=== PATIENT | female | born 1975 | race Caucasian/White ===

== ENCOUNTER → 2020-02-03 19:01 | Outpatient (ROUT) | payer OTHER, MEDICAID, SELFPAY ==
[2020-02-03 20:04] LABS: Add Manual Diff / Slide Review NO; Basophils Absolute Auto 0 /uL (0-100); Basophils Percent Auto 0.5 % (0-2); Eosinophils Absolute Auto 300 /uL (0-450); Eosinophils Percent Auto 3.3 % (2-4); Hematocrit 40.2 % (36-46); Hemoglobin 13.2 g/dL (12.0-16.0); Lymphocytes Absolute Auto 2500 /uL (1100-4500); Lymphocytes Percent Auto 29.3 % (25-40); Mean Corpuscular HGB Conc 32.7 % (30-36); Mean Corpuscular Hemoglobin 29.2 PG (26-34); Mean Corpuscular Volume 89.2 fL (80-100); Monocytes Absolute Auto 600 /uL (0-900); Neutrophils Absolute Auto 5100 /uL (1500-7000); Neutrophils Percent Auto 59.9 % (50-75); Platelet Count 217 X10^3/uL (150-400); Red Blood Cell Count 4.51 X10^6/uL (4.0-5.2); Red Cell Distribution Width 13.7 % (11.6-14.8); White Blood Cell Count 8.5 X10^3/uL (4.5-11.0)
[2020-02-03 20:17] LABS: Aspartate Aminotransferase 31 IU/L (14-36); BUN Creatinine Ratio 18.6 (6-22); Blood Urea Nitrogen 18 mg/dL (7-17); Calcium 10.1 mg/dL (8.4-10.2); Carbon Dioxide 32 mmol/L (22-32); Chloride 102 mmol/L (98-107); Cholesterol 203 mg/dL (140-199); Estimated Glomerular Filt Rate > 60.0 mL/min (>60); Glucose 111 mg/dL (70-100); HDL Cholesterol 40 mg/dL (40-60); HEMOLYSIS < 15 (0-50); LDL Cholesterol Calculated 117 mg/dL (<100); Potassium 4.4 mmol/L (3.4-5.1); Sodium 138 mmol/L (137-145); Triglycerides 230 mg/dL (35-150)
[2020-02-03 20:51] LABS: TSH w/ Reflex to FT4 1.88 uIU/mL (0.47-4.68)
== END ==
PROVIDERS: PCP Internal Medicine; Visit Provider Internal Medicine
DX: E03.9 Hypothyroidism, unspecified (principal); I10 Essential (primary) hypertension; E78.2 Mixed hyperlipidemia
CPT/HCPCS: 80048; 80061; 84443; 84450; 85025

== ENCOUNTER → 2021-11-03 08:38 | Outpatient (CLI) | payer BC, OTHER, SELFPAY ==
[2021-11-03 09:40] LABS: Hematocrit 39.4 % (36-46); Hemoglobin 13.2 g/dL (12.0-16.0); Mean Corpuscular HGB Conc 33.6 % (30-36); Mean Corpuscular Volume 89.3 fL (80-100); Platelet Count 267 X10^3/uL (150-400); Red Blood Cell Count 4.41 X10^6/uL (4.0-5.2); Red Cell Distribution Width 13.7 % (11.6-14.8); White Blood Cell Count 8.5 X10^3/uL (4.5-11.0)
[2021-11-03 09:46] LABS: Appearance Urine UA CLEAR; Bilirubin Urine UA NEGATIVE (NEGATIVE); Color Urine UA YELLOW; Glucose Urine UA NEGATIVE (Negative); Ketones Urine UA NEGATIVE (NEGATIVE); Leukocyte Esterase Urine UA NEGATIVE (NEGATIVE); Nitrite Urine UA NEGATIVE (Negative); Occult Blood Urine UA NEGATIVE (Negative); Protein Urine UA NEGATIVE (Negative); Specific Gravity Urine UA 1.025 (1.000-1.035); Urobilinogen Urine UA 0.2 E.U./dL (0.2)
[2021-11-03 10:11] LABS: pH Urine UA 5.5 (4.5-8.0)
[2021-11-03 10:17] LABS: Hemoglobin A1C% w Est Avg Glu 5.7 % (4.0-6.0)
[2021-11-03 10:18] LABS: Bacteria Urine None Seen; Culture Indicated Urine Cult Not Indicated; Mucus Urine 2+ (Negative); RBC Urine None Seen (0-5/HPF); WBC Urine None Seen (0-5/HPF)
[2021-11-03 10:21] LABS: Creatinine Urine Random 233.8 mg/dL
[2021-11-03 10:23] LABS: Microalbumi Creatinin Ratio Ur 12.4 ug/mg CR (<30); Microalbumin Urine Random 2.9 mg/dL (0-1.6)
[2021-11-03 10:26] LABS: Alanine Aminotransferase 24 IU/L (<35); Albumin Globulin Ratio 1.4 (1.0-2.8); Alkaline Phosphatase 48 U/L (38-126); Aspartate Aminotransferase 27 IU/L (14-36); BUN Creatinine Ratio 10.3 (6-22); Bilirubin Total 0.3 mg/dL (0.2-1.3); Blood Urea Nitrogen 11 mg/dL (7-17); Carbon Dioxide 32 mmol/L (22-32); Chloride 105 mmol/L (98-107); Cholesterol 217 mg/dL (140-199); Estimated Glomerular Filt Rate > 60 mL/min (>60); Globulin 2.8 g/dL (1.7-4.1); Glucose 101 mg/dL (70-100); HDL Cholesterol 42 mg/dL (40-60); HEMOLYSIS < 15 (0-50); LDL Cholesterol Calculated 119 mg/dL (<100); Potassium 4.6 mmol/L (3.4-5.1); Sodium 141 mmol/L (137-145); Total Protein 6.8 g/dL (6.3-8.2); Triglycerides 281 mg/dL (35-150)
[2021-11-03 10:47] LABS: TSH w/ Reflex to FT4 2.28 uIU/mL (0.47-4.68)
== END ==
PROVIDERS: PCP Internal Medicine; Referring Provider Internal Medicine; Visit Provider Internal Medicine
DX: E03.9 Hypothyroidism, unspecified (principal); E11.69 Type 2 diabetes mellitus with other specified complication; E78.2 Mixed hyperlipidemia; E78.5 Hyperlipidemia, unspecified; I10 Essential (primary) hypertension; N39.0 Urinary tract infection, site not specified
CPT/HCPCS: 36415; 80053; 80061; 81001; 82043; 82570; 83036; 84443; 85027

== ENCOUNTER → 2022-11-07 11:28 | Outpatient (CLI) | payer BC, SELFPAY ==
--- NOTE | 2022-11-07 11:30 | DI.RAD.S_ITS ---
PROCEDURE: XR LUMBAR SPINE MIN 4V INDICATIONS: BACK PAIN TECHNIQUE: 5 views of the lumbar spine were acquired, including bilateral oblique views. COMPARISON: [facility], XR LUMBAR SPINE 2 OR 3 VIEWS, 03/01/2017, 13:23. FINDINGS: Bones: 5 nonrib-bearing vertebrae are present. There is normal bony alignment. No vertebral body compression fractures. No suspicious bony lesions. Moderate disc height loss at L5-S1. Mild facet arthropathy at L5-S1. Soft tissues: Overlying bowel gas pattern is normal. No suspicious soft tissue calcifications. Right upper quadrant surgical clips. Oblique images: No definite pars defects. IMPRESSION: Moderate intervertebral disc height loss at L5-S1 and mild facet arthropathy. Dictated by: Red Davidson M.D. on 11/07/2022 at 12:17 Approved by: Red Davidson M.D. on 11/07/2022 at 12:19
--- NOTE | 2022-11-07 11:30 | DI.RAD.S_ITS ---
PROCEDURE: XR HIP W PEL IF DONE S[facility] MIN 4V INDICATIONS: RIGHT HIP PAIN TECHNIQUE: AP pelvis with lateral view(s) of the bilateral hip(s). COMPARISON: None. FINDINGS: Bones: No fractures or dislocations. Pelvic ring appears intact. No suspicious bony lesions. Soft tissues: The visualized bowel gas pattern is normal. No suspicious soft tissue calcifications. IMPRESSION: No acute osseous abnormality. If pain persists with conservative management, consider repeat x-ray in 10-14 days or cross-sectional imaging. Dictated by: Red Davidson M.D. on 11/07/2022 at 12:19 Approved by: Red Davidson M.D. on 11/07/2022 at 12:20
[2022-11-07 13:57] LABS: Add Manual Diff / Slide Review NO; Basophils Absolute Auto 100 /uL (0-100); Basophils Percent Auto 0.4 % (0-2); Eosinophils Absolute Auto 0 /uL (0-450); Eosinophils Percent Auto 0.3 % (2-4); Hematocrit 41.7 % (36-46); Hemoglobin 13.4 g/dL (12.0-16.0); Lymphocytes Absolute Auto 2200 /uL (1100-4500); Lymphocytes Percent Auto 15.1 % (25-40); Mean Corpuscular HGB Conc 32.2 % (30-36); Mean Corpuscular Hemoglobin 29.4 PG (26-34); Mean Corpuscular Volume 91.3 fL (80-100); Monocytes Absolute Auto 600 /uL (0-900); Monocytes Percent Auto 4.4 % (3-14); Neutrophils Absolute Auto 11400 /uL (1500-7000); Neutrophils Percent Auto 79.8 % (50-75); Platelet Count 205 X10^3/uL (150-400); Red Blood Cell Count 4.57 X10^6/uL (4.0-5.2); Red Cell Distribution Width 13.6 % (11.6-14.8); White Blood Cell Count 14.3 X10^3/uL (4.5-11.0)
[2022-11-07 14:17] LABS: Alanine Aminotransferase 20 IU/L (<35); Albumin 4.2 g/dL (3.5-5.0); Albumin Globulin Ratio 1.3 (1.0-2.8); Alkaline Phosphatase 47 U/L (38-126); Aspartate Aminotransferase 26 IU/L (14-36); BUN Creatinine Ratio 22.2 (6-22); Bilirubin Total 0.5 mg/dL (0.2-1.3); Blood Urea Nitrogen 22 mg/dL (7-17); Calcium 10.1 mg/dL (8.4-10.2); Carbon Dioxide 30 mmol/L (22-32); Chloride 101 mmol/L (98-107); Cholesterol 245 mg/dL (140-199); Estimated Glomerular Filt Rate > 60 mL/min (>60); Globulin 3.2 g/dL (1.7-4.1); Glucose 119 mg/dL (70-100); HDL Cholesterol 71 mg/dL (40-60); HEMOLYSIS 42 (0-50); LDL Cholesterol Calculated 135 mg/dL (<100); Potassium 4.6 mmol/L (3.4-5.1); Sodium 136 mmol/L (137-145); Total Protein 7.4 g/dL (6.3-8.2); Triglycerides 195 mg/dL (35-150)
[2022-11-07 14:51] LABS: TSH w/ Reflex to FT4 0.81 uIU/mL (0.47-4.68)
[2022-11-07 16:28] LABS: Microalbumi Creatinin Ratio Ur 13.1 ug/mg CR (<30); Microalbumin Urine Random 1.5 mg/dL (0-1.6)
[2022-11-08 02:36] LABS: Labcorp Hemoglobin (Hb) A1c 6.1 % (4.8-5.6)
== END ==
PROVIDERS: PCP Internal Medicine; Referring Provider Physical Medicine & Rehabilitation; Visit Provider Physical Medicine & Rehabilitation
DX: M47.817 Spondylosis without myelopathy or radiculopathy, lumbosacral region (principal); M54.31 Sciatica, right side; M25.551 Pain in right hip; M54.9 Dorsalgia, unspecified; E03.9 Hypothyroidism, unspecified; E11.69 Type 2 diabetes mellitus with other specified complication; E66.9 Obesity, unspecified; E78.2 Mixed hyperlipidemia; I10 Essential (primary) hypertension
CPT/HCPCS: 36415; 72110; 73522; 80053; 80061; 82043; 82570; 83036; 84443; 85025

== ENCOUNTER → 2022-11-30 11:29 | Outpatient (CLI) | payer BC, SELFPAY ==
--- NOTE | 2022-11-30 11:37 | DI.MRI.S_ITS ---
PROCEDURE: MR LUMBAR SPINE WO CON INDICATIONS: Right L4-5 radiculopathy TECHNIQUE: Noncontrast sagittal T1 spin echo and T2 fast echo, sagittal STIR, and T2 fast spin echo through the lumbar spine. In cases with scoliosis, additional coronal T2 fast spin echo may be performed. COMPARISON: Outside Facility, [facility], MRI L-SPINE W/O CONTRAST, 10/24/2022, 1:25. FINDINGS: Image quality: Excellent. Alignment and Curvature: Straightening of normal lumbar lordosis. No spondylolisthesis. Bone Marrow: L1 vertebral body hemangioma. Marrow is otherwise of normal overall signal. No acute vertebral body compression fractures. Spinal Cord: Conus medullaris terminates at the L1 level. Visualized cord demonstrates normal signal and size. Paraspinous Soft Tissues: No paravertebral masses. T12-L1: No central canal or neural foraminal stenosis. L1-L2: No central canal or neural foraminal stenosis. L2-L3: No central canal or neural foraminal stenosis. L3-L4: No central canal or neural foraminal stenosis. L4-L5: Disc desiccation and mild height loss Minimal central disc protrusion with annular tear. Facet arthropathy and thickening ligamentum flavum. No significant central canal or neural foraminal stenosis. L5-S1: Disc desiccation height loss. Small left paracentral disc protrusion without central canal or neural foraminal stenosis. IMPRESSION: Degenerative disc disease at L4-5 and L5-S1 as described above. No significant central canal or neural foraminal stenosis. Dictated by: Red Davidson M.D. on 11/30/2022 at 12:32 Approved by: Red Davidson M.D. on 11/30/2022 at 12:36
== END ==
PROVIDERS: PCP Internal Medicine; Referring Provider Physical Medicine & Rehabilitation; Visit Provider Physical Medicine & Rehabilitation
DX: M51.16 Intervertebral disc disorders with radiculopathy, lumbar region (principal); M51.17 Intervertebral disc disorders with radiculopathy, lumbosacral region
CPT/HCPCS: 72148